=== PATIENT | male | born 1945 | race Caucasian/White ===

== ENCOUNTER 2018-04-18 11:09 | Outpatient (CLI) | payer MEDICARE, OTHER ==
--- NOTE | 2018-04-18 13:27 | RAD ---
RADIOGRAPH CHEST 2 VIEWS: Date: 04-18-18 Time: 11:17 a.m. HISTORY: 72-year-old male status post right thoracotomy, now with dyspnea. COMPARISON: 04-10-18 FINDINGS: The right sided chest tube has been removed. No right sided pneumothorax is visualized. There continu es to be extensive right sided subcutaneous emphysema, although this has improved. There continues to be diffuse bilateral interstitial densities throughout the lungs. Left apical surgical clips are aga in noted. Chronic deformities of the left rib cage again noted. No cardiomegaly. Chronic elevation of the right hemidiaphragm. Blunting of the right lateral costophrenic angle and right posterior costop hrenic angle. The lateral view also shows a small airspace density at the far posterior aspect of the midlung zone, uncertain whether right or left. The left posterior costophrenic angle and the left la teral costophrenic angle, are sharp. IMPRESSION: 1. Interval removal of right sided thoracotomy tube. 2. No pneumothorax. 3. Interval improvement, but not resolution, of the right subcutaneous emphysema. 4. Right small pleural effusion versus pleural thickening. 5. Diffuse bilateral interstitial densities, similar to prior study. 6. Multiple old left rib fracture deformities. 7. Small air-space density at posterior aspect of lung, seen only on lateral view. JN [] POS: [facility]
== END 2018-04-18 11:10 | disposition home or self-care (01) ==
LOC: NAV RAD 11:09
PROVIDERS: ATTEND Internal Medicine
DX: T81.82XA Emphysema (subcutaneous) resulting from a procedure, initial encounter (principal); R91.8 Other nonspecific abnormal finding of lung field
CPT/HCPCS: 71046

== ENCOUNTER 2018-04-18 12:08 | Outpatient (CLI) | payer MEDICARE, OTHER ==
[2018-04-18 12:16] LABS: #Basophils 0.1 thou/uL (0.0-0.2); #Eosinphils 0.3 thou/uL (0.0-0.7); #Lymphocytes 2.7 thou/uL (1.20-3.40); #Monocytes 1.1 thou/uL (0.11-0.59); #Neutrophils 13.4 thou/uL (1.40-6.50); %Basophils 0.5 % (0.0-1.0); %Eosinophils 1.6 % (0.0-10.0); %Lymphocytes 15.1 % (21.0-51.0); %Monocytes 6.5 % (0.0-10.0); %Neutrophils 76.2 % (42.0-75.0); Hemoglobin 14.3 g/dL (14.0-18.0); Mean Corpuscular HGB CONC 30.2 g/dL (32.0-36.0); Mean Corpuscular Hemoglobin 28.3 pg (27.0-31.0); Mean Corpuscular Volume 93.9 fl (80.0-94.0); Mean Platelet Volume 6.2 fL (7.4-10.4); Platelet Count 376 thou/uL (130-400); Red Blood Cell (RBC) Count 5.05 mill/uL (4.70-6.10); White Blood Cell (WBC) Count 17.5 thou/uL (4.8-10.8)
[2018-04-18 12:43] LABS: Anion Gap 18 mmol/L (10-20); BUN (Urea Nitrogen) 18 mg/dL (8.4-25.7); Calc. Creatinine Clearance 0 mL/min (70-130); Calcium 8.9 mg/dL (7.8-10.44); Carbon Dioxide 31 mmol/L (23-31); Chloride 100 mmol/L (98-107); Estimated GFR-MDRD Greater than 90; Glucose 105 mg/dL (83-110); Potassium 3.5 mmol/L (3.5-5.1); Sodium 145 mmol/L (136-145)
== END 2018-04-18 12:09 | disposition home or self-care (01) ==
LOC: NAV LAB 12:08
PROVIDERS: ATTEND Internal Medicine
DX: R53.1 Weakness (principal); R06.02 Shortness of breath
CPT/HCPCS: 36415; 71046; 80048; 83880; 85025

== ENCOUNTER 2018-05-30 11:27 | Inpatient (IN) | payer MEDICARE, OTHER ==
[~2018-05-30 11:27] MED LIST: Iopamidol 370 76% 100 ML VIAL ONE
[2018-05-30] MEDS ORDERED: Sodium Chloride 0.9% 500 ML ONE (12:15)
[2018-05-30 12:18] LABS: #Basophils 0.1 thou/uL (0.0-0.2); #Eosinphils 0.2 thou/uL (0.0-0.7); #Lymphocytes 1.6 thou/uL (1.20-3.40); #Neutrophils 13.8 thou/uL (1.40-6.50); %Basophils 0.9 % (0.0-1.0); %Eosinophils 1.5 % (0.0-10.0); %Lymphocytes 9.6 % (21.0-51.0); Hemoglobin 12.7 g/dL (14.0-18.0); Mean Corpuscular HGB CONC 31.9 g/dL (32.0-36.0); Mean Corpuscular Hemoglobin 28.1 pg (27.0-31.0); Mean Corpuscular Volume 88.1 fL (78.0-98.0); Mean Platelet Volume 6.4 fL (7.4-10.4); Platelet Count 523 thou/uL (130-400); RBC Distribution Width 13.9 % (11.5-14.5); Red Blood Cell (RBC) Count 4.51 mill/uL (4.70-6.10); White Blood Cell (WBC) Count 16.8 thou/uL (4.8-10.8)
[2018-05-30 12:25] LABS: ALT (SGPT) 9 U/L (8-55); AST (SGOT) 15 U/L (5-34); Albumin 3.3 g/dL (3.4-4.8); Alkaline Phosphatase 133 U/L (40-150); Anion Gap 19 mmol/L (10-20); BUN (Urea Nitrogen) 20 mg/dL (8.4-25.7); Bilirubin, Total 0.3 mg/dL (0.2-1.2); Calc. Creatinine Clearance 0 mL/min (70-130); Calcium 8.9 mg/dL (7.8-10.44); Carbon Dioxide 28 mmol/L (23-31); Chloride 101 mmol/L (98-107); Estimated GFR-MDRD Greater than 90; Globulin 3.6 g/dL (2.4-3.5); Glucose 115 mg/dL (83-110); Lipase 5 U/L (8-78); Protein, Total 6.9 g/dL (5.8-8.1); Sodium 145 mmol/L (136-145)
--- NOTE | 2018-05-30 12:28 | RAD ---
AP VIEW CHEST: Date: 05/30/18 INDICATION: Nausea, vomiting, and weight loss. Examination compared to prior dated 04/24/18. FINDINGS: Chronic lung changes are stable. Mild cardiomegaly persists. Ostectomy of the left clavicle is simila r. Surgical clips within the left subclavicular region stable. IMPRESSION: Stable exam. POS: [facility]
[2018-05-30 12:40] LABS: Potassium 2.6 mmol/L (3.5-5.1)
[2018-05-30 13:15] LABS: Bilirubin Small (Negative); Blood, Urine Trace (Negative); Clarity Clear (Clear); Glucose, Urine (Dipstick) Negative (Negative); Leukocyte Negative (Negative); Nitrite Negative (Negative); Protein, Urine (Dipstick) 100 mg/dL (Neg-Trace); Specific Gravity, Urine 1.025 (1.005-1.030); Urobilinogen 0.2 mg/dL (0.2-1.0)
[2018-05-30] MEDS ORDERED: Potassium Chloride 10 MEQ/100 ML PREMIX BAG ONE (13:19)
[2018-05-30 13:26] LABS: Bacteria/HPF Rare-Few HPF (None Seen); RBC/HPF 0-3 HPF (0-3); Squamous Epithelial 0-3 HPF (0-3); WBC/HPF 0-3 HPF (0-3)
[2018-05-30] MEDS: 1/2 NS w/KCL 20 mEq 1,000 ML IV SCH (15:45)
[2018-05-30] MEDS ORDERED: Potassium Chloride 20 MEQ TAB PO SCH (17:00)
[2018-05-30] MEDS ORDERED: Sodium Chloride 0.9% 1,000 ML IV SCH (17:30)
[2018-05-30] MEDS ORDERED: HYDROcodone/Acetaminophen 5/325 mg Tablet PO PRN (17:33)
[2018-05-30] MEDS ORDERED: ALPRAZolam 0.25 MG TAB PO PRN (17:33)
[2018-05-30] MEDS: D5 NS w/ 40 mEq KCl 1,000 ML IV SCH (18:32)
[2018-05-30] MEDS: Mometasone/Formoterol 60 PUFF AER INH SCH (18:33)
--- NOTE | 2018-05-30 19:57 | CT ---
CT OF ABDOMEN AND PELVIS 05/30/18 COMPARISON: 01/17/17 HISTORY: Loss of appetite, weight loss, lung cancer. TECHNIQUE: Serial axial CT imaging is obtained at 5 mm intervals from lung bases through pubic symphysis with in travenous and oral contrast. Coronal reformatted imaging obtained. FINDINGS: Lateral medical office technician imaging demonstrates kyphoplasty changes at T12 and L1 with age indeterminate end plate fractures at L3, L4, and L5. Imaged lung bases demonstrate bilateral pleural effusions, new when compared to the prior CT, moderat e on the right and mild on the left. There is mild pleural thickening and pleural enhancement on the left which could be related to inflammatory or infectious change versus posttreatment change. There i s a small area of nonspecific cavitary change within the left lower lobe on axial image 18 measuring 3.9 x 2.0 cm, also new and nonspecific. Incompletely imaged coronary arterial calcification is presen t. There is a small hiatal hernia noted. No free intraperitoneal air or fluid is seen. The liver, spleen, pancreas, adrenal glands, and kidneys demonstrate no acute findings. The gallbladd er appears surgically absent. There is no evidence for bowel inflammatory change or bowel obstruction. There is a focal area of soft tissue density in the left pericolic gutter posterior to the descending colon on image 55 on the left, less conspicuous than on the prior exam. There is extensive atherosclerotic calcification of the abdominal aorta and its branches. There is an infrarenal abdominal aortic aneurysm at the axial level of the L4 vertebral body which measures 3.4 x 3.5 cm, similar when compared to the prior exam. There is also aneurysmal dilatation of the distal aspect of the left common iliac artery measuring in the 1.7 cm range, stable. No retroperitoneal lymphadenopathy is noted. Review of the osseous structures demonstrates an old fracture of the posterior aspect right 8th rib. There is an old displaced fracture of the right 7th rib and an age indeterminate fracture of the righ t 6th rib. Multiple old posterolateral left sided rib fractures are noted as well. Age indeterminate anterior wedge compression fracture noted at T9 and T10. Old bilateral inferior pub ic rami fractures and superior pubic rami fractures with mild displacement noted. Old appearing bilat eral sacral fractures are seen. IMPRESSION: There are numerous chronic findings as described above, including an infrarenal abdominal aortic aneu rysm and numerous fractures of the pelvis, spine and ribs. There are bilateral pleural abnormalities noted as described above, nonspecific. Clinical correlation is required. POS: [facility]
[2018-05-30] MEDS ORDERED: Diphenoxylate HCl/Atropine Tablet PO SCH (20:30)
[2018-05-30] MEDS ORDERED: Sodium Chloride 0.9% 10 ML ONE (20:35)
[2018-05-30] MEDS: Ondansetron HCl/PF 4 MG/2 ML Vial IVP PRN (20:36)
[2018-05-30] MEDS: Amlodipine 10 MG TAB PO SCH (20:55)
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
[2018-05-31] MEDS: D5 NS w/ 40 mEq KCl 1,000 ML IV SCH ×3 (02:20→16:50)
[2018-05-31] MEDS: 1/2 NS w/KCL 20 mEq 1,000 ML IV SCH (02:26)
[2018-05-31 05:11] LABS: #Basophils 0.1 thou/uL (0.0-0.2); #Eosinphils 0.2 thou/uL (0.0-0.7); #Lymphocytes 1.4 thou/uL (1.20-3.40); %Basophils 0.4 % (0.0-1.0); %Eosinophils 1.5 % (0.0-10.0); %Lymphocytes 10.4 % (21.0-51.0); %Monocytes 7.3 % (0.0-10.0); %Neutrophils 80.3 % (42.0-75.0); Hemoglobin 11.8 g/dL (14.0-18.0); Mean Corpuscular HGB CONC 31.7 g/dL (32.0-36.0); Mean Corpuscular Volume 88.3 fL (78.0-98.0); Mean Platelet Volume 6.1 fL (7.4-10.4); Platelet Count 485 thou/uL (130-400); RBC Distribution Width 13.7 % (11.5-14.5); Red Blood Cell (RBC) Count 4.23 mill/uL (4.70-6.10); White Blood Cell (WBC) Count 13.7 thou/uL (4.8-10.8)
[2018-05-31 05:28] LABS: Anion Gap 14 mmol/L (10-20); BUN (Urea Nitrogen) 10 mg/dL (8.4-25.7); Calc. Creatinine Clearance 73 mL/min (70-130); Calcium 8.2 mg/dL (7.8-10.44); Carbon Dioxide 28 mmol/L (23-31); Chloride 103 mmol/L (98-107); Estimated GFR-MDRD Greater than 90; Glucose 116 mg/dL (83-110); Potassium 3.1 mmol/L (3.5-5.1); Sodium 142 mmol/L (136-145)
[2018-05-31] MEDS: Mometasone/Formoterol 60 PUFF AER INH SCH ×2 (05:57→18:06)
[2018-05-31] MEDS ORDERED: Sodium Chloride 0.9% 10 ML ONE (09:09)
[2018-05-31] MEDS: Ondansetron HCl/PF 4 MG/2 ML Vial IVP PRN (09:15)
[2018-05-31] MEDS: ALPRAZolam 0.25 MG TAB PO PRN (20:28)
[2018-05-31] MEDS: Amlodipine 10 MG TAB PO SCH (20:28)
[2018-06-01] MEDS: D5 NS w/ 40 mEq KCl 1,000 ML IV SCH ×6 (00:07→21:35)
[2018-06-01 05:09] LABS: #Basophils 0.1 thou/uL (0.0-0.2); #Eosinphils 0.3 thou/uL (0.0-0.7); #Lymphocytes 1.7 thou/uL (1.20-3.40); %Basophils 0.7 % (0.0-1.0); %Eosinophils 1.8 % (0.0-10.0); %Lymphocytes 12.1 % (21.0-51.0); %Monocytes 7.3 % (0.0-10.0); %Neutrophils 78.1 % (42.0-75.0); Hemoglobin 11.1 g/dL (14.0-18.0); Mean Corpuscular HGB CONC 31.9 g/dL (32.0-36.0); Mean Corpuscular Hemoglobin 28.2 pg (27.0-31.0); Mean Corpuscular Volume 88.2 fL (78.0-98.0); Mean Platelet Volume 5.9 fL (7.4-10.4); Platelet Count 466 thou/uL (130-400); RBC Distribution Width 13.7 % (11.5-14.5); Red Blood Cell (RBC) Count 3.94 mill/uL (4.70-6.10); White Blood Cell (WBC) Count 14.1 thou/uL (4.8-10.8)
[2018-06-01 05:26] LABS: Anion Gap 15 mmol/L (10-20); BUN (Urea Nitrogen) Less than 4 mg/dL (8.4-25.7); Calc. Creatinine Clearance 822 mL/min (70-130); Calcium 7.9 mg/dL (7.8-10.44); Carbon Dioxide 24 mmol/L (23-31); Chloride 105 mmol/L (98-107); Estimated GFR-MDRD Greater than 90; Glucose 128 mg/dL (83-110); Potassium 3.5 mmol/L (3.5-5.1); Sodium 140 mmol/L (136-145)
[2018-06-01] MEDS: Mometasone/Formoterol 60 PUFF AER INH SCH ×2 (05:54→18:21)
[2018-06-01] MEDS ORDERED: Sodium Chloride 0.9% 10 ML ONE (17:10)
[2018-06-01] MEDS: Ondansetron HCl/PF 4 MG/2 ML Vial IVP PRN (17:15)
--- NOTE | 2018-06-01 18:57 | PRG ---
DATE OF SERVICE: 06/01/2018 SUBJECTIVE: The patient feels well except for mild nausea and persistent anorexia and persistent rig ht upper quadrant pain. He had no fever or chills, no cough, no shortness of breath. OBJECTIVE: VITAL SIGNS: Temperature is 98, pulse is 97, respirations 18, O2 sats 93% on room air, blood pressur e 137/70. ABDOMEN: Soft and nontender except for right upper quadrant and right lower anterior chest pain. LABORATORY DATA: Shows sodium stable at 140, potassium 3.5, chloride 105, bicarbonate 24, BUN 4, cre atinine 0.63. White count, however, is increased again to 14,100, hematocrit 34, hemoglobin 11, 78% segs. PLAN: Decrease IV fluids 75 an hour. Continue Zofran for nausea. Consult with Pulmonary about poss ible need for thoracentesis. Continue to withhold antibiotics. Repeat CBC in the a.m.
[2018-06-01] MEDS: Amlodipine 10 MG TAB PO SCH (21:04)
[2018-06-01] MEDS: ALPRAZolam 0.25 MG TAB PO PRN (21:06)
--- NOTE | 2018-06-01 22:05 | PRG ---
DATE OF SERVICE: 05/31/2018 SUBJECTIVE: The patient feels somewhat better with increased strength, still not eating well with pe rsistent nausea and having no cough, sweats or chills, but is complaining of some right upper quadran t, right lower chest pain. OBJECTIVE: VITAL SIGNS: Blood pressure 139/73, pulse is 96, respirations 22, O2 sats 93% on room air. He is af ebrile. LUNGS: Show decreased breath sounds in the bases. CARDIOVASCULAR: Showed regular rhythm. No gallops or murmurs. ABDOMEN: Soft and nontender. LABORATORY DATA: Show white count down to 13,700, hematocrit 37, hemoglobin 11. Potassium up to 3.1 , sodium 142, chloride 103, bicarbonate 28, BUN 10, creatinine 0.71. IMAGING: CT scan of the abdomen shows bilateral pleural effusions, new compared to previous CT, mode rate on the right, mild on the left. Mild pleural thickening. Enhancement on the left. No intraper itoneal fluid, normal intra-abdominal findings except for extensive arteriosclerotic calcification of the abdominal aorta and an abdominal aortic aneurysm measuring 3 x 4 x 3.5 with no acute change. ASSESSMENT: Resolving hypokalemia, persistent nausea, improving leukocytosis of unknown etiology wit h only finding on CT scan of the abdominal aneurysm and bilateral effusions. PLAN: Continue IV fluids. Continue Zofran for nausea. Continue withhold antibiotics. Repeat labs in the a.m.
[2018-06-02 05:35] LABS: #Basophils 0.1 thou/uL (0.0-0.2); #Eosinphils 0.4 thou/uL (0.0-0.7); #Lymphocytes 1.5 thou/uL (1.20-3.40); #Monocytes 0.9 thou/uL (0.11-0.59); #Neutrophils 10.8 thou/uL (1.40-6.50); %Basophils 0.9 % (0.0-1.0); %Eosinophils 2.9 % (0.0-10.0); %Lymphocytes 10.8 % (21.0-51.0); %Monocytes 6.4 % (0.0-10.0); Hemoglobin 10.7 g/dL (14.0-18.0); Mean Corpuscular HGB CONC 31.2 g/dL (32.0-36.0); Mean Corpuscular Hemoglobin 27.9 pg (27.0-31.0); Mean Corpuscular Volume 89.3 fL (78.0-98.0); Mean Platelet Volume 6.3 fL (7.4-10.4); Platelet Count 447 thou/uL (130-400); RBC Distribution Width 13.8 % (11.5-14.5); Red Blood Cell (RBC) Count 3.82 mill/uL (4.70-6.10); White Blood Cell (WBC) Count 13.7 thou/uL (4.8-10.8)
[2018-06-02 05:42] LABS: Anion Gap 15 mmol/L (10-20); BUN (Urea Nitrogen) Less than 4 mg/dL (8.4-25.7); Calc. Creatinine Clearance 95 mL/min (70-130); Carbon Dioxide 24 mmol/L (23-31); Chloride 105 mmol/L (98-107); Estimated GFR-MDRD Greater than 90; Glucose 109 mg/dL (83-110); Sodium 140 mmol/L (136-145)
[2018-06-02] MEDS: Mometasone/Formoterol 60 PUFF AER INH SCH (06:16)
[2018-06-02 14:58] VITALS: BMI 21.5
[2018-06-02] MEDS ORDERED: D5 NS w/ 40 mEq KCl 1,000 ML IV SCH (16:44)
[2018-06-02 16:52] VITALS: BP 137/55; TEMP 98.9
[2018-06-02] MEDS ORDERED: Potassium Chloride 10 MEQ TAB PO SCH (17:00)
--- NOTE | 2018-06-03 00:23 | DIS ---
DATE OF ADMISSION: 05/30/2018 DATE OF DISCHARGE: 06/02/2018 FINAL DIAGNOSES: 1. Severe hypokalemia. 2. Deconditioning and anorexia. 3. Status post partial lobectomy for right lower lobe cancer of the lung with no evidence of metasta sis. 4. Fluid overload. 5. Congestive heart failure. 6. Peripheral vascular disease. HOSPITAL COURSE: Patient is a very pleasant, 72-year-old white male with a long history of COPD, deg enerative disk disease, joint disease, peripheral vascular disease, peptic ulcer disease, recent can er of the lung, status post partial lobectomy, who presented with several week history of weakness, n ausea, vomiting, and was admitted to the hospital when he was found to have a potassium of 2.6 and se corona weakness. PHYSICAL EXAMINATION: VITAL SIGNS: At that time, his vital signs showed him to have blood pressure of 128/72, O2 saturatio n 93%, respirations 18. He was afebrile. LUNGS: Show decreased breath sounds in the bases. CARDIAC: Showed regular rhythm. ABDOMEN: Soft and nontender. SKIN AND EXTREMITIES: Showed no edema. LABORATORY DATA: Potassium was 2.6 as mentioned above. Sodium 145, chloride 101, bicarbonate 28, BU N 20, creatinine 0.81, glucose 115, albumin was 3.3. Chest x-ray showed chronic lung changes, mild c ardiomegaly. HOSPITAL COURSE: Patient was started on IV normal saline with 40 of potassium and monitored closely. He continued to have anorexia, but slowly improved. His potassium did slowly improve to 3.1, then 3.6, then 4.0; however, he continued to have anorexia and therefore had a CT scan done which showed n o significant abnormalities of the peripheral vascular disease and chronic aneurysm with no change. It did, however, show bilateral effusions and it was felt that this might have been related to his IV fluids. Consultation was obtained with his car carder who agreed with this. His laboratories di d show also, however, that he continued to have a leukocytosis of 16,000, although it did decrease to 13,000. Urinalysis was within normal limits. There was no evidence of any infection. He never had any fever, was feeling better and wished to be discharged home to continue with diuresis with Lasix 40 twice daily, and potassium supplementation 10 twice daily. Follow up in 3 days with repeat chest x-ray. If fluid continued at that time, may refer for pulmonary consultation and thoracentesis. Wandy or to discharge, he will have CBC, BNP and BMP and these will repeated again on Tuesday. He will be c ontinued on his prehospitalization medications of alprazolam 0.25 every 8 hours as needed, amlodipine 10 mg nightly, and Dulera 200 mcg inhaler 2 puffs twice daily as well as Protonix 40 daily. He will only be advised to take his hydrocodone as needed because of fear of this may have been causing some of his anorexia. He will follow up with myself in 3 days.
[2018-06-03] MEDS ORDERED: Furosemide 40 MG/4 ML VIAL SLOW IVP SCH (09:00)
[2018-06-03] MEDS ORDERED: Furosemide 40 MG TAB PO SCH (09:00)
--- NOTE | 2018-06-06 11:42 | PQF ---
Danyel Ulloa LUKE MD [id number] [id number] CLINICAL DOCUMENTATION CLARIFICATION FORM: POST DISCHARGE DATE: 06/06/2018 ATTN: Dr. De Oliveira Please exercise your independent, professional judgment in responding to the clarification form. Clinical indicators are provided on the bottom of this form for your review Please check appropriate box(s): HEART FAILURE: A. TYPE: [ ] Systolic / HFrEF [x ] Diastolic / HFpEF [ ] Combined Systolic / Diastolic B. ACUITY [ x] Acute [ ] Acute on Chronic [ ] Chronic [ ] Other diagnosis (please specify) [ ] Unable to determine In addition, please specify: Present on Admission (POA): [ ] Yes [ ] No [x ] Unable to determine For continuity of documentation, please document condition throughout progress notes and discharge summary. Thank You. CLINICAL INDICATORS - SIGNS / SYMPTOMS / LABS Per 05/31 progress note: CT scan of the abdomen shows bilateral pleural effusions, new compared to previous CT, moderate on the right, mild on the left. Per 06/01 progress note: Decrease IV fluids 75 an hour. Consult with pulmonary about possible need for thoracentesis. Per discharge summary: Fluid overload. Congestive heart failure. CT scan done : Showed bilateral effusions and it was felt that this might have been related to his IV fluids. RISKS: Per discharge summary: IV fluids. TREATMENTS: Per medications 06/03: Lasix 40 mg slow IV push. Per discharge summary: Continue with diuresis with Lasix 40 twice daily. (This form is maintained as a part of the permanent medical record) 2014 [employer], [employer]. All Rights Reserved Shahnaz [email or web address] [phone] MTDD
== END 2018-06-02 17:46 | disposition home or self-care (01) | DRG 640 ==
LOC: NAV ERS 11:27 → NAV ACUTE 14:15 → OBSVTOIN 15:35
PROVIDERS: ADMIT Internal Medicine; ATTEND Internal Medicine
DX: E87.6 Hypokalemia (principal); I50.31 Acute diastolic (congestive) heart failure; E86.0 Dehydration; I73.9 Peripheral vascular disease, unspecified; I71.4 Abdominal aortic aneurysm, without rupture; R11.0 Nausea; F17.210 Nicotine dependence, cigarettes, uncomplicated; R63.0 Anorexia; D72.829 Elevated white blood cell count, unspecified; J44.9 Chronic obstructive pulmonary disease, unspecified; Z68.21 Body mass index [BMI] 21.0-21.9, adult; Z85.118 Personal history of other malignant neoplasm of bronchus and lung; Z87.11 Personal history of peptic ulcer disease; Z79.899 Other long term (current) drug therapy; Z90.2 Acquired absence of lung [part of]
CPT/HCPCS: 36415; 71045; 74177; 80048; 80053; 81003; 81015; 83690; 85025; 87040; 93005; 96360; 96365; A4216; G8978-GP-CJ; G8979-GP-CI; J2405; J3480; J7050

== ENCOUNTER 2018-11-10 15:05 | Emergency (ER) | payer MEDICARE, OTHER ==
[2018-11-10 15:47] LABS: #Basophils 0.1 thou/uL (0.0-0.2); #Eosinphils 0.1 thou/uL (0.0-0.7); #Lymphocytes 1.2 thou/uL (1.20-3.40); #Monocytes 0.8 thou/uL (0.11-0.59); #Neutrophils 9.5 thou/uL (1.40-6.50); %Basophils 1.2 % (0.0-1.0); %Eosinophils 0.8 % (0.0-10.0); %Lymphocytes 10.4 % (21.0-51.0); %Monocytes 6.9 % (0.0-10.0); %Neutrophils 80.8 % (42.0-75.0); Hemoglobin 15.6 g/dL (14.0-18.0); Mean Corpuscular HGB CONC 32.8 g/dL (32.0-36.0); Mean Corpuscular Hemoglobin 29.5 pg (27.0-31.0); Mean Corpuscular Volume 89.9 fL (78.0-98.0); Mean Platelet Volume 6.6 fL (7.4-10.4); Platelet Count 265 thou/uL (130-400); RBC Distribution Width 14.1 % (11.5-14.5); Red Blood Cell (RBC) Count 5.28 mill/uL (4.70-6.10); White Blood Cell (WBC) Count 11.8 thou/uL (4.8-10.8)
[2018-11-10 16:02] LABS: ALT (SGPT) 22 U/L (8-55); AST (SGOT) 21 U/L (5-34); Albumin 4.4 g/dL (3.4-4.8); Alkaline Phosphatase 93 U/L (40-150); Anion Gap 18 mmol/L (10-20); BUN (Urea Nitrogen) 18 mg/dL (8.4-25.7); Bilirubin, Total 0.3 mg/dL (0.2-1.2); Calc. Creatinine Clearance 0 mL/min (70-130); Carbon Dioxide 21 mmol/L (23-31); Chloride 97 mmol/L (98-107); Estimated GFR-MDRD Greater than 90; Globulin 2.8 g/dL (2.4-3.5); Glucose 109 mg/dL (83-110); Potassium 4.3 mmol/L (3.5-5.1); Protein, Total 7.2 g/dL (5.8-8.1); Sodium 132 mmol/L (136-145)
--- NOTE | 2018-11-10 16:05 | RAD ---
1 VIEW CHEST: Date: 11/10/18 COMPARISON: 05/30/18, 08/07/18. HISTORY: Dyspnea. FINDINGS: Chronic change involving the left hemithorax. Chronic change in the lung parenchyma. Stable configura tion of the cardiac silhouette. Stable blunting of the right costophrenic angle due to pleural effusi on with adjacent parenchymal changes. No definite pneumothorax. Stable changes of the left clavicle. IMPRESSION: No significant interval change. POS: [facility]
[2018-11-10] MEDS ORDERED: predniSONE 20 MG TAB ONE (16:15)
== END 2018-11-10 16:38 | disposition home or self-care (01) ==
LOC: NAV ERS 15:05
DX: J44.1 Chronic obstructive pulmonary disease with (acute) exacerbation (principal); K21.9 Gastro-esophageal reflux disease without esophagitis; I10 Essential (primary) hypertension; F17.210 Nicotine dependence, cigarettes, uncomplicated; Z79.899 Other long term (current) drug therapy
CPT/HCPCS: 71045; 80053; 83605; 83880; 84484; 85025; 93005; 94760; 99406; J7506; J7620

== ENCOUNTER 2019-02-13 14:12 | Emergency (ER) | payer MEDICARE, OTHER ==
--- NOTE | 2019-02-13 15:04 | RAD ---
[facility] shoulder 3 views: 02/13/2019 HISTORY: Injury, trauma, fall, pain FINDINGS: There are numerous old left-sided rib fractures. Left clavicle appears surgically absent. No evidence for dislocation of the left glenohumeral joint. There is a transverse impacted acute frac ture involving the left humeral head at the junction of the humeral neck with mild lateral displaceme nt. IMPRESSION: Acute proximal left humeral fracture as above.
== END 2019-02-13 15:25 | disposition home or self-care (01) ==
LOC: NAV ERS 14:12
DX: S42.202A Unspecified fracture of upper end of left humerus, initial encounter for closed fracture (principal); K21.9 Gastro-esophageal reflux disease without esophagitis; I10 Essential (primary) hypertension; I71.4 Abdominal aortic aneurysm, without rupture; F17.210 Nicotine dependence, cigarettes, uncomplicated; Z79.1 Long term (current) use of non-steroidal anti-inflammatories (NSAID); Z79.899 Other long term (current) drug therapy; W19.XXXA Unspecified fall, initial encounter

== ENCOUNTER 2019-04-04 12:43 | Emergency (ER) | payer MEDICARE, OTHER ==
[2019-04-04 13:35] LABS: #Basophils 0.1 thou/uL (0.0-0.2); #Eosinphils 0.1 thou/uL (0.0-0.7); #Lymphocytes 1.5 thou/uL (1.20-3.40); #Monocytes 0.8 thou/uL (0.11-0.59); #Neutrophils 10.5 thou/uL (1.40-6.50); %Eosinophils 0.6 % (0.0-10.0); %Lymphocytes 11.4 % (21.0-51.0); %Monocytes 6.3 % (0.0-10.0); %Neutrophils 80.7 % (42.0-75.0); Hemoglobin 15.3 g/dL (14.0-18.0); Mean Corpuscular HGB CONC 31.7 g/dL (32.0-36.0); Mean Corpuscular Hemoglobin 29.8 pg (27.0-31.0); Mean Corpuscular Volume 93.8 fL (78.0-98.0); Mean Platelet Volume 6.4 fL (7.4-10.4); Platelet Count 323 thou/uL (130-400); RBC Distribution Width 14.1 % (11.5-14.5); Red Blood Cell (RBC) Count 5.13 mill/uL (4.70-6.10); White Blood Cell (WBC) Count 13.1 thou/uL (4.8-10.8)
[2019-04-04 13:58] LABS: ALT (SGPT) 26 U/L (8-55); AST (SGOT) 45 U/L (5-34); Albumin 3.9 g/dL (3.4-4.8); Alkaline Phosphatase 144 U/L (40-150); Anion Gap 26 mmol/L (10-20); BUN (Urea Nitrogen) 25 mg/dL (8.4-25.7); Bilirubin, Total 0.5 mg/dL (0.2-1.2); CK (CPK) 75 U/L (30-200); Calc. Creatinine Clearance 0 mL/min (70-130); Calcium 8.9 mg/dL (7.8-10.44); Carbon Dioxide 19 mmol/L (23-31); Chloride 104 mmol/L (98-107); Estimated GFR-MDRD 62; Globulin 3.2 g/dL (2.4-3.5); Glucose 150 mg/dL (83-110); Potassium 3.8 mmol/L (3.5-5.1); Protein, Total 7.1 g/dL (5.8-8.1); Sodium 145 mmol/L (136-145)
[2019-04-04 14:15] LABS: CKMB 5.6 ng/mL (0-6.6)
[2019-04-04] MEDS ORDERED: Furosemide 40 MG/4 ML VIAL ONE (14:23)
--- NOTE | 2019-04-04 14:29 | RAD ---
PORTABLE CHEST: Date: 04/04/19 HISTORY: Dyspnea. COMPARISON: 02/07/19. FINDINGS: Borderline cardiomegaly. Vascular and interstitial congestion is present, indicating interstitial and early alveolar edema pattern. Probable small right effusion blunting the AP angle. IMPRESSION: Evidence of congestive change with edema. POS: [facility]
[2019-04-04 14:38] LABS: Bilirubin Small (Negative); Blood, Urine Negative (Negative); Glucose, Urine (Dipstick) Negative (Negative); Leukocyte Negative (Negative); Nitrite Negative (Negative); Protein, Urine (Dipstick) > or equal to 300 mg/dL (Neg-Trace); pH, Urine 5.5 (5.0-9.0)
[2019-04-04] MEDS ORDERED: Sodium Chloride 0.9% 250 ML 250 ML ONE (14:47)
[2019-04-04 14:52] LABS: Bacteria/HPF Rare-Few HPF (None Seen); Clarity SL HAZY (Clear); RBC/HPF 0-3 HPF (0-3); WBC/HPF 0-3 HPF (0-3)
[2019-04-04 14:53] LABS: Other Casts/LPF 0-3 COARSE GRAN LPF (0-3 Hyaline); Specific Gravity, Urine 1.039 (1.005-1.030); Transitional Epithelial 0-3 HPF (0-3)
[2019-04-04] MEDS ORDERED: Enoxaparin Sodium 80 MG/0.8 ML SYRINGE ONE (15:43)
--- NOTE | 2019-04-04 15:46 | CT ---
CT PULMONARY ANGIOGRAM WITH IV CONTRAST AND 3D POSTPROCESSING: Date: 04/04/19 HISTORY: Dyspnea, tachycardia, lung cancer, partial right lobectomy. FINDINGS: There is good opacification of the pulmonary arterial vasculature with filling defects noted bilatera lly consistent with bilateral pulmonary embolism. There is a small right pleural effusion. Patchy [place] und-glass infiltrates are seen on either side. There are changes of emphysema. Enlarged lymph nodes a re seen in the mediastinum measuring up to 13 mm. No pericardial effusion seen. Tiny left pleural eff usion may be present. There are degenerative changes in the spine. Old right-sided rib fractures are noted. IMPRESSION: Bilateral pulmonary embolism. Discussed over the telephone with ER physician, Dr. Emre De La Cruz, at 1534 hours. CODE CR. POS: [facility]
== END 2019-04-04 16:18 | disposition short-term general hospital (02) ==
LOC: NAV ERS 12:43
DX: I26.09 Other pulmonary embolism with acute cor pulmonale (principal); I11.0 Hypertensive heart disease with heart failure; I50.9 Heart failure, unspecified; F17.210 Nicotine dependence, cigarettes, uncomplicated; I71.4 Abdominal aortic aneurysm, without rupture; K21.9 Gastro-esophageal reflux disease without esophagitis; Z85.118 Personal history of other malignant neoplasm of bronchus and lung; Z79.899 Other long term (current) drug therapy
CPT/HCPCS: 71045; 71275; 80053; 81003; 81015; 82550; 82553; 83605; 83880; 84484; 85025; 85379; 87040; 87086; 93005; 96365; 96372; 96375; J1650; J1940; J3370; J7050; J7620; Q9967